=== PATIENT | female | born 1990 | race Caucasian/White ===

== ENCOUNTER 2023-02-17 18:28 | Emergency (ER) | payer OTHER ==
[2023-02-17 18:34] VITALS: BP 104/70; PULSE 63; RESP 18; TEMP 97.8; BMI 18.8
== END 2023-02-17 20:25 | disposition home or self-care (01) ==
LOC: FER 18:28
DX: S00.03XA Contusion of scalp, initial encounter (principal); R51.9 Headache, unspecified; W19.XXXA Unspecified fall, initial encounter; W22.01XA Walked into wall, initial encounter
CPT/HCPCS: 70450-TC; 81025; 99284-25